=== PATIENT | female | born 1960 | race American Indian/Alaskan Native ===

== ENCOUNTER 2017-09-22 23:09 | Emergency (ER) | payer SELFPAY ==
[2017-09-22] MEDS ORDERED: VASELINE LIP THERAPY TP PRN (23:24)
[2017-09-22] MEDS ORDERED: ARTIFICIAL TEARS OPHTH OINT OU PRN (23:24)
--- NOTE | 2017-09-22 23:32 | Emergency Department Report ---
ED Seizure HPI - General Chief Complaint: Seizure Stated Complaint: CONVULSIONS Time Seen by Provider: 09/22/17 23:23 Source: EMS, old records reviewed Mode of arrival: Stretcher Limitations: Altered Mental Status - History of Present Illness Initial Comments: 57 year old female the past medical history of brain aneurysm and seizures presents to the Hospital seizure and altered mental status. Patient presents altered and unable to provide any history of present illness therefore history initially obtained from EMS. Patient apparently had a seizure lasting approximately 10 minutes followed by alteration in mental status. Patient was hypoxic at 80% on room air which improved with nonrebreather. Patient did not have any further seizures in route to the hospital but received Ativan 2 mg. Accu-Chek was reportedly in normal range. As per EMS family members at the scene state that patient had a bleeding aneurysm in June presenting with seizures. After initial treatment she has not had any other seizures until today and has had residual mild unilateral weakness since Jun. Patient is apparently to schedule surgical repair of her aneurysm. Patient presents altered, hypertensive, and tachycardic and therefore intubated for airway stabilization. Awaiting family arrival for further history of present illness. No previous medical record available for review Family at bedside at 1:20 AM and able to provide additional history Apparently patient is alcoholic and drinks alcohol daily. When she presented in June with her seizure she was going through alcohol withdrawal at the time. 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 Patient was initially is in [facility] to subsequently transferred to [place] where she was admitted times one week. She was discharged with seizure medication and scheduled to follow up with [facility] neurosurgery to have an operation of her large circular aneurysm as an outpatient. Patient has appointment on October 04 with the neurosurgeon to have the surgery performed. Patient drinks every day and has alcohol withdrawal tremors. She drank more than usual yesterday so her family member prevented her from drinking any alcohol today. - Related Data Home Medications Medication Instructions Recorded Confirmed Last Taken No Known Home Medications [No 09/23/17 09/23/17 Unknown Reported Home Medications] Allergies Allergy/AdvReac Type Severity Reaction Status Date / Time No Known Allergies Allergy Unverified 09/22/17 23:21 ED Review of Systems ROS: Stated complaint: CONVULSIONS Other details as noted in HPI Comment: Unobtainable due to pts medical conditions ED Past Medical Hx - Social History Smoking Status: Unknown if ever smoked Substance Use Type: None - Medications Home Medications: Home Medications Medication Instructions Recorded Confirmed Last Taken Type No Known Home Medications [No 09/23/17 09/23/17 Unknown History Reported Home Medications] ED Physical Exam - General Limitations: Altered Mental Status - Other Other exam information: General: Altered on response Head exam: Atraumatic, normocephalic Eyes exam: Normal appearance, pupils equal reactive to light ENT: Mild lip abrasion with mild blood in oropharynx Neck exam: Normal inspection Respiratory exam: Clear to auscultation bilateral. Prolonged expiratory phase Cardiovascular: Tachycardic Abdomen: Soft, nondistended, and nontender, with normal bowel sounds, no rebound, or guarding Extremity: Full range of motion normal inspection no deformity Back: Normal Inspection, full range of motion, no tenderness Neurologic: GCS [id number] = 6 Psychiatric: normal affect, normal mood Skin: Warm, dry, intact ED Course Vital Signs 09/22/17 09/22/17 09/22/17 23:12 23:15 23:24 Temperature Pulse Rate 122 H 133 H 120 H Respiratory 16 10 L Rate Blood Pressure 171/104 175/107 126/91 Blood Pressure [Right] O2 Sat by Pulse 100 96 100 Oximetry 09/22/17 09/22/17 09/22/17 23:30 23:45 23:59 Temperature 99.5 F Pulse Rate 133 H 112 H 115 H Respiratory 18 18 18 Rate Blood Pressure 123/84 113/89 Blood Pressure 113/89 [Right] O2 Sat by Pulse 95 100 100 Oximetry 09/23/17 09/23/17 09/23/17 00:11 00:15 00:24 Temperature Pulse Rate 102 H 100 H Respiratory 19 18 18 Rate Blood Pressure 129/91 124/91 Blood Pressure [Right] O2 Sat by Pulse 100 100 100 Oximetry 09/23/17 09/23/17 09/23/17 00:30 00:45 01:00 Temperature Pulse Rate 110 H 125 H 127 H Respiratory 18 18 20 Rate Blood Pressure 149/101 182/115 168/99 Blood Pressure [Right] O2 Sat by Pulse 99 98 Oximetry 09/23/17 09/23/17 09/23/17 01:15 01:30 01:46 Temperature Pulse Rate 107 H 120 H 117 H Respiratory 18 21 29 H Rate Blood Pressure 157/90 171/121 141/88 Blood Pressure [Right] O2 Sat by Pulse 99 100 98 Oximetry - Reevaluation(s) Reevaluation #1: 09/23/17 03:09 Patient now maxed out on Ativan and still having movement spasms. Propofol initiated. Cardene was never given since blood pressure improved after Ativan drip. - Consultations Consultation #1: 09/23/17 01:23 Call placed to [facility] to discuss with Neurosurgeon. Awaiting call back 09/23/17 02:[address] Duke at this time for transfer to [facility] - Intubation Time Out Performed: Yes Sedative: Etomidate Mg Given: 20 Paralytic: Rocuronium Mg Given: 100 Laryngoscope: Ana Cristina Size: 3 ET Tube Size: 7.5 Other Airway Intervention: pretreatment with Lidocaine 100mg Tube Secured Depth (cm): 24 Tube Secured Location: lips Tube Placement Confirmation: visualized tube passing t, equal breath sounds bilat, no breath sounds over epi, confirmation by capnometr Patient Tolerated Procedure: well Intubation Complications: none ED Medical Decision Making - Lab Data Result diagrams: 09/22/17 00:14 09/22/17 00:14 Lab Results 09/22/17 09/22/17 09/22/17 Range/Units 00:14 00:14 00:14 WBC 11.6 H (4.5-11.0) K/mm3 RBC 3.91 (3.65-5.03) M/mm3 Hgb 13.0 (10.1-14.3) gm/dl Hct 39.0 (30.3-42.9) % MCV 100 H (79-97) fl MCH 33 H (28-32) pg MCHC 33 (30-34) % RDW 13.3 (13.2-15.2) % Plt Count 363 (140-440) K/mm3 Lymph % (Auto) 21.2 (13.4-35.0) % Dougherty % (Auto) 5.2 (0.0-7.3) % Eos % (Auto) 1.6 (0.0-4.3) % Baso % (Auto) 0.3 (0.0-1.8) % Lymph # 2.5 (1.2-5.4) K/mm3 Dougherty # 0.6 (0.0-0.8) K/mm3 Eos # 0.2 (0.0-0.4) K/mm3 Baso # 0.0 (0.0-0.1) K/mm3 Seg Neutrophils % 71.7 H (40.0-70.0) % Seg Neutrophils # 8.3 H (1.8-7.7) K/mm3 PT (12.2-14.9) Sec. INR (0.87-1.13) APTT (24.2-36.6) Sec. POC ABG pH (7.35-7.45) POC ABG pCO2 (35-45) POC ABG pO2 (80-105) POC ABG HCO3 POC ABG Total CO2 POC ABG O2 Sat POC ABG Base Excess FiO2 % Sodium 131 L (137-145) mmol/L Potassium 3.2 L (3.6-5.0) mmol/L Chloride 91.9 L (98-107) mmol/L Carbon Dioxide 21 L (22-30) mmol/L Anion Gap 21 mmol/L BUN 4 L (7-17) mg/dL Creatinine 0.8 (0.7-1.2) mg/dL Estimated GFR > 60 ml/min BUN/Creatinine Ratio 5 % Glucose 148 H (65-100) mg/dL Lactic Acid (0.7-2.0) mmol/L Calcium 9.3 (8.4-10.2) mg/dL Magnesium (1.7-2.3) mg/dL Total Bilirubin 0.30 (0.1-1.2) mg/dL AST 38 (5-40) units/L ALT 17 (7-56) units/L Alkaline Phosphatase 103 (35-129) units/L Total Creatine Kinase (30-135) units/L CK-MB (CK-2) (0.0-4.0) ng/mL CK-MB (CK-2) Rel Index (0-4) Troponin T (0.00-0.029) ng/mL Total Protein 8.6 H (6.3-8.2) g/dL Albumin 3.6 L (3.9-5) g/dL Albumin/Globulin Ratio 0.7 % TSH 9.350 H (0.270-4.200) mlU/mL Urine Color (Yellow) Urine Turbidity (Clear) Urine pH (5.0-7.0) Ur Specific [place] (1.003-1.030) Urine Protein (Negative) mg/dL Urine Glucose (UA) (Negative) mg/dL Urine Ketones (Negative) mg/dL Urine Blood (Negative) Urine Nitrite (Negative) Urine Bilirubin (Negative) Urine Urobilinogen (<2.0) mg/dL Ur Leukocyte Esterase (Negative) Urine WBC (Auto) (0.0-6.0) /HPF Urine RBC (Auto) (0.0-6.0) /HPF U Epithel Cells (Auto) (0-13.0) /HPF Amorphous Crystals Urine Mucus /HPF Salicylates (2.8-20.0) mg/dL Urine Opiates Screen Urine Methadone Screen Acetaminophen (10.0-30.0) ug/mL Ur Barbiturates Screen Ur Phencyclidine Scrn Ur Amphetamines Screen U Benzodiazepines Scrn Urine Cocaine Screen U Marijuana (THC) Screen Drugs of Abuse Note Plasma/Serum Alcohol (0-0.07) % 09/22/17 09/22/17 09/22/17 Range/Units 00:14 00:14 00:14 WBC (4.5-11.0) K/mm3 RBC (3.65-5.03) M/mm3 Hgb (10.1-14.3) gm/dl Hct (30.3-42.9) % MCV (79-97) fl MCH (28-32) pg MCHC (30-34) % RDW (13.2-15.2) % Plt Count (140-440) K/mm3 Lymph % (Auto) (13.4-35.0) % Dougherty % (Auto) (0.0-7.3) % Eos % (Auto) (0.0-4.3) % Baso % (Auto) (0.0-1.8) % Lymph # (1.2-5.4) K/mm3 Dougherty # (0.0-0.8) K/mm3 Eos # (0.0-0.4) K/mm3 Baso # (0.0-0.1) K/mm3 Seg Neutrophils % (40.0-70.0) % Seg Neutrophils # (1.8-7.7) K/mm3 PT 14.8 (12.2-14.9) Sec. INR 1.10 (0.87-1.13) APTT 27.1 (24.2-36.6) Sec. POC ABG pH (7.35-7.45) POC ABG pCO2 (35-45) POC ABG pO2 (80-105) POC ABG HCO3 POC ABG Total CO2 POC ABG O2 Sat POC ABG Base Excess FiO2 % Sodium (137-145) mmol/L Potassium (3.6-5.0) mmol/L Chloride (98-107) mmol/L Carbon Dioxide (22-30) mmol/L Anion Gap mmol/L BUN (7-17) mg/dL Creatinine (0.7-1.2) mg/dL Estimated GFR ml/min BUN/Creatinine Ratio % Glucose (65-100) mg/dL Lactic Acid (0.7-2.0) mmol/L Calcium (8.4-10.2) mg/dL Magnesium 1.80 (1.7-2.3) mg/dL Total Bilirubin (0.1-1.2) mg/dL AST (5-40) units/L ALT (7-56) units/L Alkaline Phosphatase (35-129) units/L Total Creatine Kinase (30-135) units/L CK-MB (CK-2) (0.0-4.0) ng/mL CK-MB (CK-2) Rel Index (0-4) Troponin T (0.00-0.029) ng/mL Total Protein (6.3-8.2) g/dL Albumin (3.9-5) g/dL Albumin/Globulin Ratio % TSH (0.270-4.200) mlU/mL Urine Color (Yellow) Urine Turbidity (Clear) Urine pH (5.0-7.0) Ur Specific [place] (1.003-1.030) Urine Protein (Negative) mg/dL Urine Glucose (UA) (Negative) mg/dL Urine Ketones (Negative) mg/dL Urine Blood (Negative) Urine Nitrite (Negative) Urine Bilirubin (Negative) Urine Urobilinogen (<2.0) mg/dL Ur Leukocyte Esterase (Negative) Urine WBC (Auto) (0.0-6.0) /HPF Urine RBC (Auto) (0.0-6.0) /HPF U Epithel Cells (Auto) (0-13.0) /HPF Amorphous Crystals Urine Mucus /HPF Salicylates (2.8-20.0) mg/dL Urine Opiates Screen Urine Methadone Screen Acetaminophen (10.0-30.0) ug/mL Ur Barbiturates Screen Ur Phencyclidine Scrn Ur Amphetamines Screen U Benzodiazepines Scrn Urine Cocaine Screen U Marijuana (THC) Screen Drugs of Abuse Note Plasma/Serum Alcohol < 0.01 (0-0.07) % 09/22/17 09/22/17 09/22/17 Range/Units 00:14 00:14 00:14 WBC (4.5-11.0) K/mm3 RBC (3.65-5.03) M/mm3 Hgb (10.1-14.3) gm/dl Hct (30.3-42.9) % MCV (79-97) fl MCH (28-32) pg MCHC (30-34) % RDW (13.2-15.2) % Plt Count (140-440) K/mm3 Lymph % (Auto) (13.4-35.0) % Dougherty % (Auto) (0.0-7.3) % Eos % (Auto) (0.0-4.3) % Baso % (Auto) (0.0-1.8) % Lymph # (1.2-5.4) K/mm3 Dougherty # (0.0-0.8) K/mm3 Eos # (0.0-0.4) K/mm3 Baso # (0.0-0.1) K/mm3 Seg Neutrophils % (40.0-70.0) % Seg Neutrophils # (1.8-7.7) K/mm3 PT (12.2-14.9) Sec. INR (0.87-1.13) APTT (24.2-36.6) Sec. POC ABG pH (7.35-7.45) POC ABG pCO2 (35-45) POC ABG pO2 (80-105) POC ABG HCO3 POC ABG Total CO2 POC ABG O2 Sat POC ABG Base Excess FiO2 % Sodium (137-145) mmol/L Potassium (3.6-5.0) mmol/L Chloride (98-107) mmol/L Carbon Dioxide (22-30) mmol/L Anion Gap mmol/L BUN (7-17) mg/dL Creatinine (0.7-1.2) mg/dL Estimated GFR ml/min BUN/Creatinine Ratio % Glucose (65-100) mg/dL Lactic Acid (0.7-2.0) mmol/L Calcium (8.4-10.2) mg/dL Magnesium (1.7-2.3) mg/dL Total Bilirubin (0.1-1.2) mg/dL AST (5-40) units/L ALT (7-56) units/L Alkaline Phosphatase (35-129) units/L Total Creatine Kinase 136 H (30-135) units/L CK-MB (CK-2) 2.0 (0.0-4.0) ng/mL CK-MB (CK-2) Rel Index 1.4 (0-4) Troponin T < 0.010 (0.00-0.029) ng/mL Total Protein (6.3-8.2) g/dL Albumin (3.9-5) g/dL Albumin/Globulin Ratio % TSH (0.270-4.200) mlU/mL Urine Color (Yellow) Urine Turbidity (Clear) Urine pH (5.0-7.0) Ur Specific [place] (1.003-1.030) Urine Protein (Negative) mg/dL Urine Glucose (UA) (Negative) mg/dL Urine Ketones (Negative) mg/dL Urine Blood (Negative) Urine Nitrite (Negative) Urine Bilirubin (Negative) Urine Urobilinogen (<2.0) mg/dL Ur Leukocyte Esterase (Negative) Urine WBC (Auto) (0.0-6.0) /HPF Urine RBC (Auto) (0.0-6.0) /HPF U Epithel Cells (Auto) (0-13.0) /HPF Amorphous Crystals Urine Mucus /HPF Salicylates < 0.3 L (2.8-20.0) mg/dL Urine Opiates Screen Urine Methadone Screen Acetaminophen < 15.0 (10.0-30.0) ug/mL Ur Barbiturates Screen Ur Phencyclidine Scrn Ur Amphetamines Screen U Benzodiazepines Scrn Urine Cocaine Screen U Marijuana (THC) Screen Drugs of Abuse Note Plasma/Serum Alcohol (0-0.07) % 09/22/17 09/22/17 09/22/17 Range/Units 00:14 23:54 23:54 WBC (4.5-11.0) K/mm3 RBC (3.65-5.03) M/mm3 Hgb (10.1-14.3) gm/dl Hct (30.3-42.9) % MCV (79-97) fl MCH (28-32) pg MCHC (30-34) % RDW (13.2-15.2) % Plt Count (140-440) K/mm3 Lymph % (Auto) (13.4-35.0) % Dougherty % (Auto) (0.0-7.3) % Eos % (Auto) (0.0-4.3) % Baso % (Auto) (0.0-1.8) % Lymph # (1.2-5.4) K/mm3 Dougherty # (0.0-0.8) K/mm3 Eos # (0.0-0.4) K/mm3 Baso # (0.0-0.1) K/mm3 Seg Neutrophils % (40.0-70.0) % Seg Neutrophils # (1.8-7.7) K/mm3 PT (12.2-14.9) Sec. INR (0.87-1.13) APTT (24.2-36.6) Sec. POC ABG pH (7.35-7.45) POC ABG pCO2 (35-45) POC ABG pO2 (80-105) POC ABG HCO3 POC ABG Total CO2 POC ABG O2 Sat POC ABG Base Excess FiO2 % Sodium (137-145) mmol/L Potassium (3.6-5.0) mmol/L Chloride (98-107) mmol/L Carbon Dioxide (22-30) mmol/L Anion Gap mmol/L BUN (7-17) mg/dL Creatinine (0.7-1.2) mg/dL Estimated GFR ml/min BUN/Creatinine Ratio % Glucose (65-100) mg/dL Lactic Acid 3.90 H* (0.7-2.0) mmol/L Calcium (8.4-10.2) mg/dL Magnesium (1.7-2.3) mg/dL Total Bilirubin (0.1-1.2) mg/dL AST (5-40) units/L ALT (7-56) units/L Alkaline Phosphatase (35-129) units/L Total Creatine Kinase (30-135) units/L CK-MB (CK-2) (0.0-4.0) ng/mL CK-MB (CK-2) Rel Index (0-4) Troponin T (0.00-0.029) ng/mL Total Protein (6.3-8.2) g/dL Albumin (3.9-5) g/dL Albumin/Globulin Ratio % TSH (0.270-4.200) mlU/mL Urine Color Yellow (Yellow) Urine Turbidity Clear (Clear) Urine pH 5.0 (5.0-7.0) Ur Specific [place] 1.006 (1.003-1.030) Urine Protein <15 mg/dl (Negative) mg/dL Urine Glucose (UA) Neg (Negative) mg/dL Urine Ketones Neg (Negative) mg/dL Urine Blood Sm (Negative) Urine Nitrite Neg (Negative) Urine Bilirubin Neg (Negative) Urine Urobilinogen < 2.0 (<2.0) mg/dL Ur Leukocyte Esterase Neg (Negative) Urine WBC (Auto) < 1.0 (0.0-6.0) /HPF Urine RBC (Auto) < 1.0 (0.0-6.0) /HPF U Epithel Cells (Auto) 1.0 (0-13.0) /HPF Amorphous Crystals 3+ Urine Mucus Few /HPF Salicylates (2.8-20.0) mg/dL Urine Opiates Screen Presumptive negative Urine Methadone Screen Presumptive negative Acetaminophen (10.0-30.0) ug/mL Ur Barbiturates Screen Presumptive negative Ur Phencyclidine Scrn Presumptive negative Ur Amphetamines Screen Presumptive negative U Benzodiazepines Scrn Presumptive negative Urine Cocaine Screen Presumptive negative U Marijuana (THC) Screen Presumptive negative Drugs of Abuse Note Disclamer Plasma/Serum Alcohol (0-0.07) % 09/22/17 Range/Units 23:59 WBC (4.5-11.0) K/mm3 RBC (3.65-5.03) M/mm3 Hgb (10.1-14.3) gm/dl Hct (30.3-42.9) % MCV (79-97) fl MCH (28-32) pg MCHC (30-34) % RDW (13.2-15.2) % Plt Count (140-440) K/mm3 Lymph % (Auto) (13.4-35.0) % Dougherty % (Auto) (0.0-7.3) % Eos % (Auto) (0.0-4.3) % Baso % (Auto) (0.0-1.8) % Lymph # (1.2-5.4) K/mm3 Dougherty # (0.0-0.8) K/mm3 Eos # (0.0-0.4) K/mm3 Baso # (0.0-0.1) K/mm3 Seg Neutrophils % (40.0-70.0) % Seg Neutrophils # (1.8-7.7) K/mm3 PT (12.2-14.9) Sec. INR (0.87-1.13) APTT (24.2-36.6) Sec. POC ABG pH 7.372 (7.35-7.45) POC ABG pCO2 45.4 H (35-45) POC ABG pO2 555 H (80-105) POC ABG HCO3 26.3 POC ABG Total CO2 28 POC ABG O2 Sat 100 POC ABG Base Excess 1 FiO2 100 % Sodium (137-145) mmol/L Potassium (3.6-5.0) mmol/L Chloride (98-107) mmol/L Carbon Dioxide (22-30) mmol/L Anion Gap mmol/L BUN (7-17) mg/dL Creatinine (0.7-1.2) mg/dL Estimated GFR ml/min BUN/Creatinine Ratio % Glucose (65-100) mg/dL Lactic Acid (0.7-2.0) mmol/L Calcium (8.4-10.2) mg/dL Magnesium (1.7-2.3) mg/dL Total Bilirubin (0.1-1.2) mg/dL AST (5-40) units/L ALT (7-56) units/L Alkaline Phosphatase (35-129) units/L Total Creatine Kinase (30-135) units/L CK-MB (CK-2) (0.0-4.0) ng/mL CK-MB (CK-2) Rel Index (0-4) Troponin T (0.00-0.029) ng/mL Total Protein (6.3-8.2) g/dL Albumin (3.9-5) g/dL Albumin/Globulin Ratio % TSH (0.270-4.200) mlU/mL Urine Color (Yellow) Urine Turbidity (Clear) Urine pH (5.0-7.0) Ur Specific [place] (1.003-1.030) Urine Protein (Negative) mg/dL Urine Glucose (UA) (Negative) mg/dL Urine Ketones (Negative) mg/dL Urine Blood (Negative) Urine Nitrite (Negative) Urine Bilirubin (Negative) Urine Urobilinogen (<2.0) mg/dL Ur Leukocyte Esterase (Negative) Urine WBC (Auto) (0.0-6.0) /HPF Urine RBC (Auto) (0.0-6.0) /HPF U Epithel Cells (Auto) (0-13.0) /HPF Amorphous Crystals Urine Mucus /HPF Salicylates (2.8-20.0) mg/dL Urine Opiates Screen Urine Methadone Screen Acetaminophen (10.0-30.0) ug/mL Ur Barbiturates Screen Ur Phencyclidine Scrn Ur Amphetamines Screen U Benzodiazepines Scrn Urine Cocaine Screen U Marijuana (THC) Screen Drugs of Abuse Note Plasma/Serum Alcohol (0-0.07) % - EKG Data -: EKG Interpreted by Ca EKG shows normal: sinus rhythm, axis (60), QRS complexes (76), ST-T waves (no stemi/t inv) Rate: tachycardia (124) - Radiology Data Radiology results: report reviewed read by radiologist cxr: Endotracheal tube in mid trachea. No acute lung findings CT head noncontrast: 16 x 13 mm partial calcified extra-axial mass in the left temporal region most likely representing a meningioma. Less likely possibly of mycotic or posttraumatic aneurysm of the left middle cerebral artery not excluded - Medical Decision Making Alcohol withdrawal Likely the cause of seizure: ativan, ativan drip, keppra given Likely the cause of hypertension and tachycardia Vitals improvement (bp and heart rate decreasing) with Ativan drip (no hx of HTN reported by family) Cardene initially ordered but held due to improving vitals Patient intubated upon arrival due to poor GCS (Neuro intubation with lidocaine , etomidate, and Rocuronium) CT shows no active hemorrhage but possible mass versus aneurysm which is likely chronic based on family history. Patient will be transferred to [facility] by neurosurgeon Dr Duke for transfer to [facility] ED. ABG does not reveal any acid-base disturbance lactic acid elevation like he secondary to seizure. Repeat pending. no signs of sepsis at this time Patient has mild hyponatremia treatment area 1 L normal saline initiated Mild hypokalemia IV potassium initiated TSH elevated: free t4 pending - Differential Diagnosis seizure, ICH, aneurysm, alcohol withdrawal, encephalopathy, hypertensive em Critical Care Time: No Critical care attestation.: If time is entered above; I have spent that time in minutes in the direct care of this critically ill patient, excluding procedure time. ED Disposition Clinical Impression: Alcohol withdrawal, Alcohol withdrawal seizure, Brain aneurysm, Endotracheally intubated, Hyponatremia, Hypokalemia, Elevated lactic acid level Disposition: DC/TX-70 ANOTHER TYPE [facility] Is pt being admited?: No Condition: Stable Time of Disposition: 02:21 (awaiting transport to [facility] ER)
[2017-09-22] MEDS ORDERED: ATIVAN 100 MG in NACL 0.9% 50 ML, VIAFLEX EMPTY CONTAINER 0 ML IV SCH (23:45)
[2017-09-22] MEDS ORDERED: NACL 0.9% 500 ML IV SCH (23:45)
[2017-09-23 00:14] LABS: Amorphous Crystals,Urine 3+; Bilirubin,Urine NEG (Negative); Blood,Urine SM (Negative); Color,Urine Yellow (Yellow); Mucus,Urine FEW /HPF; Protein,Urine <15 mg/dL mg/dL (Negative); RBC,Urine < 1.0 /HPF (0.0-6.0); Urobilinogen,Urine < 2.0 mg/dL (<2.0); WBC,Urine < 1.0 /HPF (0.0-6.0)
[2017-09-23 00:15] LABS: Basophils % (Auto) 0.3 % (0.0-1.8); Eosinophils # (Auto) 0.2 K/mm3 (0.0-0.4); Eosinophils % (Auto) 1.6 % (0.0-4.3); Lymphocytes # (Auto) 2.5 K/mm3 (1.2-5.4); Lymphocytes % (Auto) 21.2 % (13.4-35.0); Mean Corpuscular HGB Conc 33 % (30-34); Mean Corpuscular Hemoglobin 33 pg (28-32); Mean Corpuscular Volume 100 fl (79-97); Monocytes # (Auto) 0.6 K/mm3 (0.0-0.8); Monocytes % (Auto) 5.2 % (0.0-7.3); Platelet Count 363 K/mm3 (140-440); Red Blood Count 3.91 M/mm3 (3.65-5.03); Red Cell Distribution Width 13.3 % (13.2-15.2)
[2017-09-23 00:20] LABS: Amphetamine Screen,Urine PRESUMPTIVE NEGATIVE; Benzodiazepines Screen,Urine PRESUMPTIVE NEGATIVE; Cannabinoid Screen,Urine PRESUMPTIVE NEGATIVE; Cocaine Screen,Urine PRESUMPTIVE NEGATIVE; Methadone Screen,Urine PRESUMPTIVE NEGATIVE; Opiate Screen,Urine PRESUMPTIVE NEGATIVE
[2017-09-23 00:28] LABS: INR 1.1 (0.87-1.13)
[2017-09-23 00:29] LABS: Partial Thromboplastin Time 27.1 Sec. (24.2-36.6)
[2017-09-23 00:34] LABS: Alanine Aminotransferase 17 units/L (7-56); Albumin 3.6 g/dL (3.9-5); BUN/Creatinine Ratio 5; Blood Urea Nitrogen 4 mg/dL (7-17); Calcium 9.3 mg/dL (8.4-10.2); Hemolysis Index 35
[2017-09-23] MEDS ORDERED: NACL 0.9% 1000 ML 1,000 ML IV ONE ×2 (00:43→01:51)
--- NOTE | 2017-09-23 00:51 | Cat Scan Report ---
FINAL REPORT PROCEDURE: CT HEAD/BRAIN WO CON TECHNIQUE: Computerized tomography of the head was performed without contrast material. HISTORY: AMS COMPARISON: No prior studies are available for comparison. FINDINGS: Skull and scalp: Normal. Paranasal sinuses: Normal. Ventricles and subarachnoid spaces: There is central and cortical atrophy appropriate for the patient's age. There is no hydrocephalus or asymmetry. Cerebrum: There is a 16 x 13 millimeter partially calcified dense extra-axial mass in the left temporal region most likely representing meningioma. Less likely possibility of mycotic or posttraumatic aneurysm of the left middle cerebral artery not excluded. This can be further evaluated with contrast-enhanced MRI. There is no hemorrhage, edema, midline shift or herniation. There is focal encephalomalacia and gliosis in the left frontal and temporal lobes possibly from old infarct or other injury. Cerebellum and brainstem: No evidence of hemorrhage, acute infarction or mass. Vasculature: There is calcified plaque in the cavernous portions of the internal carotid arteries.. Comments: None. IMPRESSION: There is a 16 x 13 millimeter partially calcified dense extra-axial mass in the left temporal region most likely representing meningioma. Less likely possibility of mycotic or posttraumatic aneurysm of the left middle cerebral artery not excluded. This can be further evaluated with contrast-enhanced MRI. There is no hemorrhage, edema, midline shift or herniation. There is focal encephalomalacia and gliosis in the left frontal and temporal lobes possibly from old infarct or other injury.
--- NOTE | 2017-09-23 00:53 | XRay Report ---
FINAL REPORT PROCEDURE: XR CHEST 1V AP TECHNIQUE: Chest radiograph anteroposterior view. CPT 30967 HISTORY: ETT placement COMPARISON: No prior studies are available for comparison. FINDINGS: Heart: Normal. Mediastinum/Vessels: Normal. Lungs/Pleural space: Normal. Bony thorax: There is an old fracture of the left clavicle.. Life support devices: There is an endotracheal tube in the mid trachea.. IMPRESSION: No acute cardiopulmonary abnormality. There is an endotracheal tube in the mid trachea..
[2017-09-23] MEDS ORDERED: CARDENE 50 MG in NACL 0.9% 250ML 230 ML IV SCH (01:00)
[2017-09-23] MEDS ORDERED: KEPPRA 1,000 MG/NS 0.75% 100ML 1,000 MG/100 ML BAG IV ONE (01:12)
[2017-09-23] MEDS ORDERED: KCL 10MEQ/100ML 10 MEQ/100 ML BAG IV SCH (02:00)
[2017-09-23] MEDS ORDERED: KCL 40 MEQ in NACL 0.9% 500 ML 500 ML IV ONE (02:15)
[2017-09-23 03:10] VITALS: BP 126/86
[2017-09-23] MEDS ORDERED: DIPRIVAN 10 MG/ML 1,000 MG/100 ML BOTTLE IV SCH (04:00)
--- NOTE | 2017-09-23 05:37 | XRay Report ---
FINAL REPORT PROCEDURE: XR ABDOMEN 1V AP TECHNIQUE: AP supine portable radiograph of the abdomen was obtained at 09/23/2017 03:39 (EST) . HISTORY: OG placement COMPARISON: No prior studies are available for comparison. FINDINGS: Bowel gas pattern: Nonobstructive. Masses or calcifications: None. Bony structures: Normal. Other: The NG tube is in the stomach per. IMPRESSION: No acute abnormality. The NG tube is in the stomach per
--- NOTE | 2017-09-23 06:21 | XRay Report ---
FINAL REPORT PROCEDURE: XR CHEST 1V AP TECHNIQUE: Chest radiograph anteroposterior view. CPT 76874 HISTORY: follow up respiratory failure COMPARISON: No prior studies are available for comparison. FINDINGS: Heart: Normal. Mediastinum/Vessels: Normal. Lungs/Pleural space: Normal. Bony thorax: No acute osseous abnormality. Life support devices: The endotracheal tube is in the distal trachea approximately 1 centimeter above the feliciano. The NG tube is in the stomach.. IMPRESSION: Heart size is normal. Lungs are clear and expanded.. The endotracheal tube is in the distal trachea approximately 1 centimeter above the feliciano. The NG tube is in the stomach..
[2017-09-23] MEDS ORDERED: ZEMURON IV ONE (10:14)
[2017-09-23] MEDS ORDERED: AMIDATE IV ONE (10:14)
[2017-09-23] MEDS ORDERED: XYLOCAINE CARDIAC IV ONE (10:14)
== END 2017-09-23 04:22 | disposition other institution (70) ==
LOC: ED 23:09
DX: F10.239 Alcohol dependence with withdrawal, unspecified (principal); I67.1 Cerebral aneurysm, nonruptured; E87.1 Hypo-osmolality and hyponatremia; E87.6 Hypokalemia
CPT/HCPCS: 31500; 36415; 70450; 71045; 74018; 80053; 80307; 81001; 82140; 82550; 82553; 82803; 82962; 83735; 84439; 84443; 84484; 85025; 85610; 85730; 87070; 87205; 93005; 93010; 96361; 96365; 96368; 99285; G0480; J1953; J2001; J2060; J2704; J3480; J7030; J7040; J7050; 80320; 94002

== ENCOUNTER 2018-08-02 08:57 | Inpatient (IN) | payer MEDICAID ==
[2018-08-02] MEDS ORDERED: ANCEF/STERILE WATER 2 GM/20 ML IV NR (09:36)
[2018-08-02] MEDS ORDERED: DECADRON ONE (10:05)
[2018-08-02] MEDS ORDERED: ZOFRAN ONE (10:05)
[2018-08-02] MEDS ORDERED: XYLOCAINE MPF 2% ONE (10:05)
[2018-08-02] MEDS ORDERED: DILAUDID ONE ×2 (10:05→12:27)
[2018-08-02] MEDS ORDERED: DIPRIVAN 10 MG/ML IV ONE (10:05)
[2018-08-02] MEDS ORDERED: MARCAINE-EPI 0.25%-1:200,000 INFILTRATI ONE (10:50)
[2018-08-02] MEDS ORDERED: NEOSPORIN GU IR ONE (10:50)
--- NOTE | 2018-08-02 11:16 | Anesthesia Consultation ---
Anesthesia Consult and Med Hx Date of service: 08/02/18 - Airway Anesthetic Teeth Evaluation: Poor ROM Head & Neck: Adequate Mental/Hyoid Distance: Adequate Mallampati Class: Class II Intubation Access Assessment: Good - Pulmonary Exam CTA: Yes - Cardiac Exam Cardiac Exam: RRR - Pre-Operative Health Status ASA Pre-Surgery Classification: ASA3 Proposed Anesthetic Plan: General - Pulmonary Hx Asthma: No COPD: No Hx Pneumonia: No - Central Nervous System Hx Seizures: Yes (Last 06/2017) CVA: Yes (06/2017) Hx Psychiatric Problems: No - Endocrine Hx End Stage Renal Disease: No - Other Systems Hx Alcohol Use: Yes (1-2 beers per day) Hx Substance Use: Yes (Clean x 1year) Hx Cancer: No
[2018-08-02] MEDS: LACTATED RINGERS 1,000 ML IV SCH ×2 (11:20→19:41)
[2018-08-02] MEDS ORDERED: PEPCID PO NR (12:00)
[2018-08-02] MEDS ORDERED: TORADOL ONE (12:23)
[2018-08-02] MEDS ORDERED: MARCAINE 0.5% INFILTRATI ONE ×2 (12:23→12:30)
[2018-08-02] MEDS ORDERED: MORPHINE ONE (12:24)
[2018-08-02] MEDS ORDERED: NACL 0.9% 150 ML ONE (12:24)
[2018-08-02] MEDS ORDERED: TORADOL IV ONE (12:30)
[2018-08-02] MEDS ORDERED: MORPHINE IM ONE (12:30)
[2018-08-02] MEDS ORDERED: NACL 0.9% IV ONE (12:30)
[2018-08-02] MEDS ORDERED: ATIVAN ONE (15:25)
[2018-08-02] MEDS ORDERED: ATIVAN IV ONE (15:51)
[2018-08-02] MEDS ORDERED: SODIUM CHLORIDE FLUSH SYRINGE 10 ML IV SCH (16:00)
--- NOTE | 2018-08-02 16:18 | Procedure Note ---
Date of procedure: 08/02/18 Pre-op diagnosis: displaced four-part right proximal humerus fracture Post-op diagnosis: same Procedure: Reduction internal fixation right proximal humerus Procedure The patient was brought to the OR and placed on the OR table in supine position following induction and intubation by anesthesia the patient right upper extremity was prepped and draped in the usual sterile manner she was placed in the beachchair position a timeout procedure was done to identify the patient and the correct operative site. Using C-arm fluoroscopy and attempt at closed reduction was performed however the fracture fragments did not appear to change position at all therefore an open reduction internal fixation was performed using lateral incision beginning at the lateral border of the acromion and proceeding distally the incision was taken down sharply through skin and 6 subcutaneous the deltoid fascia was seen and it was split digitally the rotator cuff tendon was incised revealing the fracture site this was then taken down slightly more distal along the lateral border of the humerus. We encountered the axillary vessels and nerve using a vessel loop the axillary nerve was protected out of the operative field the fracture fragments had to be manually reduced by removing the early callus and scar tissue formation around the fracture site. The locking plates was attached to the distal fragment followed by manual reduction of the proximal fracture fragments and temporary fixation with K wires AP and lateral views were obtained on the C-arm and showed good reduction of the fracture site. Next the proximal fragments was secured using 4 locking screws and 3 screws in the distal fragment on AP and lateral view was obtained showing good reduction of the fracture and reapproximation of the articular surface of the fracture fragments proximally 3 to the tuberosities were repaired closure of the deltoid and the patient tolerated procedure and there were no complications she was then taken to postanesthesia recovery in a stable condition Anesthesia: JOSSELIN Surgeon: MARIA DE JESUS ERBOLLEDO Absorption Plant Operator: MICHAEL BOO Estimated blood loss: 50-100ml Pathology: none Condition: stable Disposition: PACU
[2018-08-02] MEDS: ANCEF/NS 1 GM/50 ML 1 GM/50 ML BAG IV SCH (21:16)
[2018-08-02] MEDS: PERCOCET 5/325 PO PRN (23:43)
[2018-08-03] MEDS: ANCEF/NS 1 GM/50 ML 1 GM/50 ML BAG IV SCH (04:54)
[2018-08-03] MEDS: PERCOCET 5/325 PO PRN ×3 (05:39→22:02)
--- NOTE | 2018-08-03 08:04 | XRay Report ---
RIGHT SHOULDER, 2 VIEWS History: Right proximal humeral fracture. Findings: Internal and external rotational fluoroscopic images were obtained during surgery. The images demonstrate a comminuted fracture of the right humeral head. The remaining bony structures are intact on fluoroscopy. Alignment at the glenohumeral joint appears anatomic. Impression: Right humeral head fracture.
--- NOTE | 2018-08-03 08:06 | XRay Report ---
RIGHT SHOULDER, 2 VIEWS History: Right proximal humeral fracture. Findings: 2 fluoroscopic images of the right shoulder were obtained during surgery. The images demonstrate internal fixation of a right humeral head fracture with metal plate and screws. Alignment appears anatomic at the fracture site. Impression: Stable appearance of the internal fixation of the right proximal humerus. Correlate with the operative report as needed.
[2018-08-03] MEDS: MORPHINE IV PRN (09:24)
[2018-08-03] MEDS: LACTATED RINGERS 1,000 ML IV SCH (09:31)
[2018-08-03] MEDS ORDERED: LOVENOX SUB-Q SCH (10:00)
[2018-08-03 10:33] LABS: Hematocrit 27.3 % (30.3-42.9); Hemoglobin 9.4 gm/dl (10.1-14.3); Mean Corpuscular HGB Conc 34 % (30-34); Mean Corpuscular Volume 90 fl (79-97); Platelet Count 487 K/mm3 (140-440); Red Blood Count 3.03 M/mm3 (3.65-5.03)
[2018-08-03] MEDS: KEPPRA PO SCH ×2 (10:43→22:02)
[2018-08-03 10:55] LABS: Alanine Aminotransferase 10 units/L (7-56); Albumin 3.2 g/dL (3.9-5); BUN/Creatinine Ratio 13; Blood Urea Nitrogen 12 mg/dL (7-17); Calcium 8.8 mg/dL (8.4-10.2); Hemolysis Index 0
--- NOTE | 2018-08-03 12:26 | Consultation ---
History of Present Illness - Reason for Consult Consult date: 08/03/18 Tachycardia Requesting physician: ADONIS FORBES - History of Present Illness Hospitalist Consultation for Tachycardia History mostly from daughter, Ele, at bedside Ms. 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 Adonis Forbes. Patient underwent Reduction internal fixation right proximal humerus. Patient had a seizure and fell causing right arm fracture. During postop period, patient has tachycardia and Hospitalist were consulted. During times of the tachycardia, pt is in pain and undergoing activities. Patient is poor historian. PMH: as hpi PSH: unknown SH: no tob +etoh 2 beers a day, former drug user prior to ICH FH: Doesn't remember ROS: unable to obtain due to cognitive impairment Medications and Allergies Allergies Allergy/AdvReac Type Severity Reaction Status Date / Time No Known Allergies Allergy Verified 07/27/18 15:34 Home Medications Medication Instructions Recorded Confirmed Last Taken Type Multivitamin [Multiple Vitamins] 1 each PO DAILY 07/18/18 07/27/18 07/18/18 History levETIRAcetam [Keppra TAB] 1,000 mg PO BID 07/18/18 07/27/18 07/18/18 History HYDROcodone/APAP 10-325 [[place] 1 each PO Q6HR PRN 07/27/18 07/27/18 Unknown History 10/325] Active Meds: Active Medications Acetaminophen/Hydrocodone Bitart ([place] 5/325) 1 each PO TID [facility] Stop: 08/04/18 10:00 Enoxaparin Sodium (Lovenox) 40 mg SUB-Q QDAY@1000 [facility] Levetiracetam (Keppra) 1,000 mg PO BID [facility] Last Admin: 08/03/18 10:43 Dose: 1,000 mg Documented by: Morphine Sulfate (Morphine) 4 mg IV Q4H PRN PRN Reason: Pain , Severe (7-10) Last Admin: 08/03/18 09:24 Dose: 4 mg Documented by: Oxycodone/Acetaminophen (Percocet 5/325) 1 tab PO Q6H PRN PRN Reason: Pain , Severe (7-10) Last Admin: 08/03/18 10:43 Dose: 1 tab Documented by: Sodium Chloride (Sodium Chloride Flush Syringe 10 Ml) 10 ml IV PRN EDWARD Last Admin: 08/03/18 09:29 Dose: 10 ml Documented by: Exam - Physical Exam Narrative exam: Gen: WDWN, NAD, Awake, Alert, Orientated x 1 HEENT: NCAT, EOMI, PERRL, OP Clear Neck: supple, no adenopathy, no thyromegaly, no JVD, right EJ CVS/Heart: RRR, normal S1S2, pulses present bilaterally Chest/Lungs: CTA B, Symmetrical chest expansion, good air entry bilaterally GI/Abdomen: soft, NTND, good bowel sounds, no guarding or rebound /Bladder: no suprapubic tenderness, no CVA or paraspinal tenderness Extermity/Skin: no c/c/e, no obvious rash, left ankle INT line MSK: lrom right arm Neuro: CN 2-12 grossly intact, no new focal deficits Psych: calm - Constitutional Vitals: Temp Pulse Resp BP Pulse Ox 100.0 F H 113 H 20 119/75 95 08/03/18 07:34 08/03/18 07:34 08/03/18 07:34 08/03/18 07:34 08/03/18 07:35 Results - Labs CBC & Chem 7: 08/03/18 09:35 08/03/18 09:35 Labs: Abnormal lab results 08/03/18 08/03/18 Range/Units 09:35 09:35 RBC 3.03 L (3.65-5.03) M/mm3 Hgb 9.4 L (10.1-14.3) gm/dl Hct 27.3 L (30.3-42.9) % Plt Count 487 H (140-440) K/mm3 Carbon Dioxide 21 L (22-30) mmol/L Glucose 113 H (65-100) mg/dL Albumin 3.2 L (3.9-5) g/dL Assessment and Plan Ms. Ivy is 58 yo woman with a history of hypertension, CVA with ICH June 2017 causing seizure disorder/cognitive impairment/memory loss and ETOH dependency who presented to [facility] as a direct admission on 08/02/2018 by Orthopedist, Dr. Adonis Forbes. Patient underwent Reduction internal fixation right proximal humerus. Patient had a seizure and fell causing right arm fracture. During postop period, patient has tachycardia and Hospitalist were consulted. During times of the tachycardia, pt is in pain and undergoing activities. Patient is poor historian. -Sinus Tachycardia, heart rate went up to 140s with activity, most likely due to uncontrolled pain, EKG reviewed: get ECHO and treat with pain medication around the clock due to mental status, re-access in AM -Right arm Fracture s/p fixation: per Ortho with dvt prophylaxis -History of ICH with chronic encephalopathy -Seizure disorder: treat with keppra, seizure precautions -Hypertension: continue antihypertensives, d/c ivf, remove INT left ankle area and right neck -Alcohol Dependency: start CIWA protocol, neurocheck, fall precautions, treat with thiamine -Anemia: continue to monitor, repeat in am Disposition: continue inpatient care, if ECHO and heart rate less than 110 then possible d/c tomorrow
[2018-08-03] MEDS ORDERED: NORCO 5/325 PO SCH (14:00)
--- NOTE | 2018-08-03 15:19 | Progress Note ---
Assessment and Plan s/p ORIF right proximal humerus fracture doing ok hopefully discharge to home soon Subjective Date of service: 08/03/18 Interval history: c/o incisional pain right shoulder, heart rate tachy 120's - 140's, appreciate medicine imput Objective Vital signs: Vital Signs - 12hr 08/03/18 08/03/18 08/03/18 04:50 07:34 07:35 Temperature 98.5 F 100.0 F H Pulse Rate 117 H 113 H Respiratory 18 20 Rate Blood Pressure 120/80 119/75 O2 Sat by Pulse 96 93 95 Oximetry 08/03/18 12:12 Temperature 99.4 F Pulse Rate 118 H Respiratory 18 Rate Blood Pressure 125/79 O2 Sat by Pulse 92 Oximetry Narrative Exam: Right shoulder - post op dressing intact, moderate swelling, distal n/v intact - Labs CBC & BMP: 08/03/18 09:35 08/03/18 09:35 Labs: Abnormal lab results 08/03/18 08/03/18 Range/Units 09:35 09:35 RBC 3.03 L (3.65-5.03) M/mm3 Hgb 9.4 L (10.1-14.3) gm/dl Hct 27.3 L (30.3-42.9) % Plt Count 487 H (140-440) K/mm3 Carbon Dioxide 21 L (22-30) mmol/L Glucose 113 H (65-100) mg/dL Albumin 3.2 L (3.9-5) g/dL
[2018-08-03] MEDS ORDERED: TYLENOL PO PRN (18:17)
[2018-08-03 19:57] LABS: Bacteria,Urine 1+ /HPF (Negative); Bilirubin,Urine NEG (Negative); Blood,Urine NEG (Negative); Color,Urine Yellow (Yellow); Protein,Urine <15 mg/dL mg/dL (Negative)
[2018-08-03 20:00] LABS: WBC,Urine > 182.0 /HPF (0.0-6.0)
[2018-08-03] MEDS: ROCEPHIN/NS 1 GM/50 ML 1 GM/50 ML BAG IV SCH (20:15)
--- NOTE | 2018-08-03 21:36 | XRay Report ---
FINAL REPORT PROCEDURE: XR CHEST 1V AP TECHNIQUE: Chest radiograph anteroposterior view. CPT 58660 HISTORY: pneumonia COMPARISON: 09/23/2017. FINDINGS: There is moderate degree elevation of right hemidiaphragm obscuring the right lower lung. Subsegmenta l atelectatic changes are noted involving the medial left lower lung. There are no confluent infiltra justin or mass lesions. Pleural spaces are clear. IMPRESSION: Right hemidiaphragm is elevated a which appears to be new since the prior study No obvious acute pulmonary process A two view chest study is recommended whenever the patient's condition permits.
[2018-08-04 05:11] LABS: Hematocrit 26.6 % (30.3-42.9); Mean Corpuscular HGB Conc 34 % (30-34); Mean Corpuscular Volume 90 fl (79-97); Platelet Count 444 K/mm3 (140-440); Red Blood Count 2.96 M/mm3 (3.65-5.03)
[2018-08-04 05:33] LABS: BUN/Creatinine Ratio 11; Blood Urea Nitrogen 9 mg/dL (7-17); Calcium 8.7 mg/dL (8.4-10.2); Hemolysis Index 8
[2018-08-04] MEDS: KEPPRA PO SCH ×2 (09:12→22:13)
[2018-08-04] MEDS: LOVENOX SUB-Q SCH (09:17)
[2018-08-04] MEDS: ROCEPHIN/NS 1 GM/50 ML 1 GM/50 ML BAG IV SCH (11:03)
--- NOTE | 2018-08-04 11:57 | Progress Note ---
Assessment and Plan Assessment and plan: Ms. Ivy is 58 yo woman with a history of hypertension, CVA with ICH June 2017 causing seizure disorder/cognitive impairment/memory loss and ETOH dependency who presented to [facility] as a direct admission on 08/02/2018 by Orthopedist, Dr. Adonis Forbes. Patient underwent Reduction internal fixation r ight proximal humerus. Patient had a seizure which caused the need to repair the right arm fracture. During the postop period, patient developed tachycardia and Hospitalist were consulted. Patient is poor historian. History mainly from daughter, Ele. -Sinus Tachycardia==>UTI with sepsis, urine ctx pending, change iv rocephin to po Levaquin due to poor iv line access. ECHO canceled by department because she just had [facility] in 06/2018, I was not aware of the cancelation until now, her EF was estimated at 50-55% with diastolic dysfunction and negative bubble study -Atelectasis on pCXR, which recommended 2v cXR which I have ordered: incentive spirometry at bedside, education done -Right arm Fracture s/p fixation: per Ortho with dvt prophylaxis -Vaginal bleeding today, will defer to Ortho regarding dvt prophylaxis, RN will call -History of ICH with chronic encephalopathy -Seizure disorder: treat with keppra, seizure precautions -Hypertension: continue antihypertensives, d/c ivf, remove INT left ankle area and right neck -Alcohol Dependency: start CIWA protocol, neurocheck, fall precautions, treat with thiamine -Anemia: continue to monitor, repeat in am Disposition: continue inpatient care History Interval history: Patient seen and examined. Still with fevers. IV rocephin not given today yet because the left ankle iv line is not working. Patient does have UTI, wbc increasing, iv rocephin started yesterday but iv line may not have been working properly. RN has called for peripheral IV line placement help. No IV team over the weekend. Hospitalist Physical - Physical exam Narrative exam: Gen: WDWN, NAD, Awake, Alert, Orientated x 1 HEENT: NCAT, EOMI, PERRL, OP Clear Neck: supple, no adenopathy, no thyromegaly, no JVD, right EJ CVS/Heart: RRR, normal S1S2, pulses present bilaterally Chest/Lungs: CTA B, Symmetrical chest expansion, good air entry bilaterally GI/Abdomen: soft, NTND, good bowel sounds, no guarding or rebound /Bladder: no suprapubic tenderness, no CVA or paraspinal tenderness Extermity/Skin: no c/c/e, no obvious rash, left ankle INT line MSK: lrom right arm Neuro: CN 2-12 grossly intact, no new focal deficits Psych: calm - Constitutional Vitals: Temp Pulse Resp BP Pulse Ox 100.0 F H 124 H 20 118/76 96 08/04/18 10:59 08/04/18 10:59 08/04/18 10:59 08/04/18 10:59 08/04/18 10:59 Results - Labs CBC & Chem 7: 08/04/18 04:35 08/04/18 04:35 Labs: Laboratory Last Values WBC 12.1 K/mm3 (4.5-11.0) H 08/04/18 04:35 RBC 2.96 M/mm3 (3.65-5.03) L 08/04/18 04:35 Hgb 9.0 gm/dl (10.1-14.3) L 08/04/18 04:35 Hct 26.6 % (30.3-42.9) L 08/04/18 04:35 MCV 90 fl (79-97) 08/04/18 04:35 MCH 31 pg (28-32) 08/04/18 04:35 MCHC 34 % (30-34) 08/04/18 04:35 RDW 14.0 % (13.2-15.2) 08/04/18 04:35 Plt Count 444 K/mm3 (140-440) H 08/04/18 04:35 Sodium 134 mmol/L (137-145) L 08/04/18 04:35 Potassium 4.0 mmol/L (3.6-5.0) 08/04/18 04:35 Chloride 99.4 mmol/L (98-107) 08/04/18 04:35 Carbon Dioxide 23 mmol/L (22-30) 08/04/18 04:35 Anion Gap 16 mmol/L 08/04/18 04:35 BUN 9 mg/dL (7-17) 08/04/18 04:35 Creatinine 0.8 mg/dL (0.7-1.2) 08/04/18 04:35 Estimated GFR > 60 ml/min 08/04/18 04:35 BUN/Creatinine Ratio 11 % 08/04/18 04:35 Glucose 107 mg/dL (65-100) H 08/04/18 04:35 Calcium 8.7 mg/dL (8.4-10.2) 08/04/18 04:35 Total Bilirubin 0.30 mg/dL (0.1-1.2) 08/03/18 09:35 AST 27 units/L (5-40) 08/03/18 09:35 ALT 10 units/L (7-56) 08/03/18 09:35 Alkaline Phosphatase 109 units/L (35-129) 08/03/18 09:35 Troponin T < 0.010 ng/mL (0.00-0.029) 08/03/18 09:35 Total Protein 6.4 g/dL (6.3-8.2) 08/03/18 09:35 Albumin 3.2 g/dL (3.9-5) L 08/03/18 09:35 Albumin/Globulin Ratio 1.0 % 08/03/18 09:35 Urine Color Yellow (Yellow) 08/03/18 19:30 Urine Turbidity Cloudy (Clear) 08/03/18 19:30 Urine pH 6.0 (5.0-7.0) 08/03/18 19:30 Ur Specific [place] 1.014 (1.003-1.030) 08/03/18 19:30 Urine Protein <15 mg/dl mg/dL (Negative) 08/03/18 19:30 Urine Glucose (UA) Neg mg/dL (Negative) 08/03/18 19:30 Urine Ketones Neg mg/dL (Negative) 08/03/18 19:30 Urine Blood Neg (Negative) 08/03/18 19:30 Urine Nitrite Neg (Negative) 08/03/18 19:30 Urine Bilirubin Neg (Negative) 08/03/18 19:30 Urine Urobilinogen 2.0 mg/dL (<2.0) 08/03/18 19:30 Ur Leukocyte Esterase Lg (Negative) 08/03/18 19:30 Urine WBC (Auto) > 182.0 /HPF (0.0-6.0) H 08/03/18 19:30 Urine RBC (Auto) 68.0 /HPF (0.0-6.0) 08/03/18 19:30 U Epithel Cells (Auto) < 1.0 /HPF (0-13.0) 08/03/18 19:30 Urine Bacteria (Auto) 1+ /HPF (Negative) 08/03/18 19:30 Urine Yeast (Budding) 1+ /HPF 08/03/18 19:30
[2018-08-04] MEDS: PERCOCET 5/325 PO PRN ×2 (13:42→22:14)
--- NOTE | 2018-08-04 13:42 | XRay Report ---
FINAL REPORT EXAM: XR CHEST ROUTINE 2V HISTORY: pneumonia TECHNIQUE: Frontal and lateral views of the chest. PRIORS: Chest x-ray August 03, 2018. FINDINGS: Cardiac silhouette is within normal limits. There is no effusion. There is no pneumothorax. There is no consolidation. Stable elevated right fiordaliza diaphragm. There are no suspicious osseous lesions. Scoliosis. Right humeral internal fixation hardware. IMPRESSION: No acute cardiopulmonary findings.
[2018-08-04] MEDS: LEVAQUIN PO SCH (13:47)
[2018-08-04] MEDS: MORPHINE IV PRN (19:29)
[2018-08-05] MEDS: PERCOCET 5/325 PO PRN ×2 (05:17→18:45)
[2018-08-05] MEDS: KEPPRA PO SCH ×2 (09:27→21:22)
[2018-08-05] MEDS: LEVAQUIN PO SCH (09:27)
[2018-08-05] MEDS: LOVENOX SUB-Q SCH (09:28)
[2018-08-05] MEDS: ROCEPHIN/NS 1 GM/50 ML 1 GM/50 ML BAG IV SCH (09:36)
[2018-08-05] MEDS: MORPHINE IV PRN (10:44)
--- NOTE | 2018-08-05 15:15 | Progress Note ---
Assessment and Plan Assessment and plan: Ms. Ivy is 58 yo woman with a history of hypertension, CVA with ICH June 2017 causing seizure disorder/cognitive impairment/memory loss and ETOH dependency who presented to [facility] as a direct admission on 08/02/2018 by Orthopedist, Dr. Adonis Forbes. Patient underwent Reduction internal fixation r ight proximal humerus. Patient had a seizure which caused the need to repair the right arm fracture. During the postop period, patient developed tachycardia and Hospitalist were consulted. Patient is poor historian. History mainly from daughter, Ele. -Sinus Tachycardia, resolving==>UTI with sepsis, -Atelectasis on pCXR, which recommended 2v cXR which I have ordered: incentive spirometry at bedside, education done -Right arm Fracture s/p fixation: per Ortho with dvt prophylaxis -Vaginal bleeding today, will defer to Ortho regarding dvt prophylaxis, RN will call -History of ICH with chronic encephalopathy -Seizure disorder: treat with keppra, seizure precautions -Hypertension: continue antihypertensives, d/c ivf, remove INT left ankle area and right neck -Alcohol Dependency: start CIWA protocol, neurocheck, fall precautions, treat with thiamine -Anemia: continue to monitor, repeat in am Disposition: continue inpatient care Need 7 days coarse of Levaquin, will leave script on chart I will sign off Anticipate discharge tomorrow by Dr. Forbes. History Interval history: Patient seen and examined. Still with fevers. IV rocephin not given today yet because the left ankle iv line is not working. Patient does have UTI, wbc increasing, iv rocephin started yesterday but iv line may not have been working properly. RN has called for peripheral IV line placement help. No IV team over the weekend. Hospitalist Physical - Physical exam Narrative exam: Gen: WDWN, NAD, Awake, Alert, Orientated x 1 HEENT: NCAT, EOMI, PERRL, OP Clear Neck: supple, no adenopathy, no thyromegaly, no JVD, right EJ CVS/Heart: RRR, normal S1S2, pulses present bilaterally Chest/Lungs: CTA B, Symmetrical chest expansion, good air entry bilaterally GI/Abdomen: soft, NTND, good bowel sounds, no guarding or rebound /Bladder: no suprapubic tenderness, no CVA or paraspinal tenderness Extermity/Skin: no c/c/e, no obvious rash, left ankle INT line MSK: lrom right arm Neuro: CN 2-12 grossly intact, no new focal deficits Psych: calm - Constitutional Vitals: Temp Pulse Resp BP Pulse Ox 98.3 F 98 H 18 99/74 95 08/05/18 07:27 08/05/18 07:28 08/05/18 11:14 08/05/18 07:27 08/05/18 08:55 Results - Labs CBC & Chem 7: 08/04/18 04:35 08/04/18 04:35 Labs: Laboratory Last Values WBC 12.1 K/mm3 (4.5-11.0) H 08/04/18 04:35 RBC 2.96 M/mm3 (3.65-5.03) L 08/04/18 04:35 Hgb 9.0 gm/dl (10.1-14.3) L 08/04/18 04:35 Hct 26.6 % (30.3-42.9) L 08/04/18 04:35 MCV 90 fl (79-97) 08/04/18 04:35 MCH 31 pg (28-32) 08/04/18 04:35 MCHC 34 % (30-34) 08/04/18 04:35 RDW 14.0 % (13.2-15.2) 08/04/18 04:35 Plt Count 444 K/mm3 (140-440) H 08/04/18 04:35 Sodium 134 mmol/L (137-145) L 08/04/18 04:35 Potassium 4.0 mmol/L (3.6-5.0) 08/04/18 04:35 Chloride 99.4 mmol/L (98-107) 08/04/18 04:35 Carbon Dioxide 23 mmol/L (22-30) 08/04/18 04:35 Anion Gap 16 mmol/L 08/04/18 04:35 BUN 9 mg/dL (7-17) 08/04/18 04:35 Creatinine 0.8 mg/dL (0.7-1.2) 08/04/18 04:35 Estimated GFR > 60 ml/min 08/04/18 04:35 BUN/Creatinine Ratio 11 % 08/04/18 04:35 Glucose 107 mg/dL (65-100) H 08/04/18 04:35 Calcium 8.7 mg/dL (8.4-10.2) 08/04/18 04:35 Total Bilirubin 0.30 mg/dL (0.1-1.2) 08/03/18 09:35 AST 27 units/L (5-40) 08/03/18 09:35 ALT 10 units/L (7-56) 08/03/18 09:35 Alkaline Phosphatase 109 units/L (35-129) 08/03/18 09:35 Troponin T < 0.010 ng/mL (0.00-0.029) 08/03/18 09:35 Total Protein 6.4 g/dL (6.3-8.2) 08/03/18 09:35 Albumin 3.2 g/dL (3.9-5) L 08/03/18 09:35 Albumin/Globulin Ratio 1.0 % 08/03/18 09:35 Urine Color Yellow (Yellow) 08/03/18 19:30 Urine Turbidity Cloudy (Clear) 08/03/18 19:30 Urine pH 6.0 (5.0-7.0) 08/03/18 19:30 Ur Specific [place] 1.014 (1.003-1.030) 08/03/18 19:30 Urine Protein <15 mg/dl mg/dL (Negative) 08/03/18 19:30 Urine Glucose (UA) Neg mg/dL (Negative) 08/03/18 19:30 Urine Ketones Neg mg/dL (Negative) 08/03/18 19:30 Urine Blood Neg (Negative) 08/03/18 19:30 Urine Nitrite Neg (Negative) 08/03/18 19:30 Urine Bilirubin Neg (Negative) 08/03/18 19:30 Urine Urobilinogen 2.0 mg/dL (<2.0) 08/03/18 19:30 Ur Leukocyte Esterase Lg (Negative) 08/03/18 19:30 Urine WBC (Auto) > 182.0 /HPF (0.0-6.0) H 08/03/18 19:30 Urine RBC (Auto) 68.0 /HPF (0.0-6.0) 08/03/18 19:30 U Epithel Cells (Auto) < 1.0 /HPF (0-13.0) 08/03/18 19:30 Urine Bacteria (Auto) 1+ /HPF (Negative) 08/03/18 19:30 Urine Yeast (Budding) 1+ /HPF 08/03/18 19:30
[2018-08-06 07:53] VITALS: BP 124/82
[2018-08-06] MEDS: LEVAQUIN PO SCH ×2 (08:02→10:44)
[2018-08-06] MEDS: KEPPRA PO SCH ×2 (08:03→10:43)
[2018-08-06] MEDS: PERCOCET 5/325 PO PRN (08:08)
[2018-08-06] MEDS: LOVENOX SUB-Q SCH ×2 (08:10→10:45)
--- NOTE | 2018-08-06 12:55 | Progress Note ---
Assessment and Plan Assessment and plan: Ms. 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 Adonis Forbes. Patient underwent Reduction internal fixation r ight proximal humerus. Patient had a seizure which caused the need to repair the right arm fracture. During the postop period, patient developed tachycardia and Hospitalist were consulted. Patient is poor historian. History was mainly from daughter, Ele. -Sinus Tachycardia, resolving==>UTI with sepsis, -Atelectasis on pCXR, which recommended 2v cXR which I have ordered: incentive spirometry at bedside, education done -Right arm Fracture s/p fixation: per Ortho with dvt prophylaxis -Vaginal bleeding today, will defer to Ortho regarding dvt prophylaxis, RN will call -History of ICH with chronic encephalopathy -Seizure disorder: treat with keppra, seizure precautions -Hypertension: continue antihypertensives, d/c ivf, remove INT left ankle area and right neck -Alcohol Dependency: start CIWA protocol, neurocheck, fall precautions, treat with thiamine -Anemia: continue to monitor, repeat in am Disposition: continue inpatient care Need 7 days coarse of Levaquin, left script on chart I will sign off Incentive spirometry stressed Anticipate discharge today History Interval history: Patient seen and examined. Follow up tachycardia, which has resolved. The incentive spirometry helps the most Hospitalist Physical - Physical exam Narrative exam: Gen: WDWN, NAD, Awake, Alert, Orientated x 1 HEENT: NCAT, EOMI, PERRL, OP Clear Neck: supple, no adenopathy, no thyromegaly, no JVD, right EJ CVS/Heart: RRR, normal S1S2, pulses present bilaterally Chest/Lungs: CTA B, Symmetrical chest expansion, good air entry bilaterally GI/Abdomen: soft, NTND, good bowel sounds, no guarding or rebound /Bladder: no suprapubic tenderness, no CVA or paraspinal tenderness Extermity/Skin: no c/c/e, no obvious rash, left ankle INT line MSK: lrom right arm Neuro: CN 2-12 grossly intact, no new focal deficits Psych: calm - Constitutional Vitals: Temp Pulse Resp BP Pulse Ox 97.0 F L 99 H 18 124/82 100 08/06/18 07:02 08/06/18 07:02 08/06/18 07:02 08/06/18 07:02 08/06/18 07:02 Results - Labs CBC & Chem 7: 08/04/18 04:35 08/04/18 04:35 Labs: Laboratory Last Values WBC 12.1 K/mm3 (4.5-11.0) H 08/04/18 04:35 RBC 2.96 M/mm3 (3.65-5.03) L 08/04/18 04:35 Hgb 9.0 gm/dl (10.1-14.3) L 08/04/18 04:35 Hct 26.6 % (30.3-42.9) L 08/04/18 04:35 MCV 90 fl (79-97) 08/04/18 04:35 MCH 31 pg (28-32) 08/04/18 04:35 MCHC 34 % (30-34) 08/04/18 04:35 RDW 14.0 % (13.2-15.2) 08/04/18 04:35 Plt Count 444 K/mm3 (140-440) H 08/04/18 04:35 Sodium 134 mmol/L (137-145) L 08/04/18 04:35 Potassium 4.0 mmol/L (3.6-5.0) 08/04/18 04:35 Chloride 99.4 mmol/L (98-107) 08/04/18 04:35 Carbon Dioxide 23 mmol/L (22-30) 08/04/18 04:35 Anion Gap 16 mmol/L 08/04/18 04:35 BUN 9 mg/dL (7-17) 08/04/18 04:35 Creatinine 0.8 mg/dL (0.7-1.2) 08/04/18 04:35 Estimated GFR > 60 ml/min 08/04/18 04:35 BUN/Creatinine Ratio 11 % 08/04/18 04:35 Glucose 107 mg/dL (65-100) H 08/04/18 04:35 Calcium 8.7 mg/dL (8.4-10.2) 08/04/18 04:35 Total Bilirubin 0.30 mg/dL (0.1-1.2) 08/03/18 09:35 AST 27 units/L (5-40) 08/03/18 09:35 ALT 10 units/L (7-56) 08/03/18 09:35 Alkaline Phosphatase 109 units/L (35-129) 08/03/18 09:35 Troponin T < 0.010 ng/mL (0.00-0.029) 08/03/18 09:35 Total Protein 6.4 g/dL (6.3-8.2) 08/03/18 09:35 Albumin 3.2 g/dL (3.9-5) L 08/03/18 09:35 Albumin/Globulin Ratio 1.0 % 08/03/18 09:35 Urine Color Yellow (Yellow) 08/03/18 19:30 Urine Turbidity Cloudy (Clear) 08/03/18 19:30 Urine pH 6.0 (5.0-7.0) 08/03/18 19:30 Ur Specific [place] 1.014 (1.003-1.030) 08/03/18 19:30 Urine Protein <15 mg/dl mg/dL (Negative) 08/03/18 19:30 Urine Glucose (UA) Neg mg/dL (Negative) 08/03/18 19:30 Urine Ketones Neg mg/dL (Negative) 08/03/18 19:30 Urine Blood Neg (Negative) 08/03/18 19:30 Urine Nitrite Neg (Negative) 08/03/18 19:30 Urine Bilirubin Neg (Negative) 08/03/18 19:30 Urine Urobilinogen 2.0 mg/dL (<2.0) 08/03/18 19:30 Ur Leukocyte Esterase Lg (Negative) 08/03/18 19:30 Urine WBC (Auto) > 182.0 /HPF (0.0-6.0) H 08/03/18 19:30 Urine RBC (Auto) 68.0 /HPF (0.0-6.0) 08/03/18 19:30 U Epithel Cells (Auto) < 1.0 /HPF (0-13.0) 08/03/18 19:30 Urine Bacteria (Auto) 1+ /HPF (Negative) 08/03/18 19:30 Urine Yeast (Budding) 1+ /HPF 08/03/18 19:30
--- NOTE | 2018-08-06 16:13 | Discharge Summary ---
Providers - Providers Date of Admission: 08/02/18 15:46 Date of discharge: 08/06/18 Attending physician: MARIA DE JESUS REBOLLEDO MD 08/02/18 16:07 Physical Therapy Evaluation and Treat [CONS] Routine Comment: pendulum exercises right shoulder Reason For Exam: postop evaluation Weight bearing status?: Full wt bearing Assistive devices?: No 08/03/18 08:49 Consult to Physician [CONS] Routine Comment: Consulting Provider: JUICE HARRIS Physician Instructions: Reason For Exam: medical care for tachycardia in post op pt Primary care physician: [employer] Hospitalization Condition: Stable Procedures: Open reduction internal fixation right proximal humerus Hospital course: 58-year-old female who sustained a displaced proximal right humerus fracture patient was admitted to the hospital and was taken to the operating room where open reduction internal fixation was performed on the right proximal humerus fracture postoperatively patient was seen and evaluated by physical therapy where she was given instructions on range of motion and strengthening exercises to the right upper extremity. Postoperative course was unremarkable patient eventually was discharged home with follow-up appointment in the office Disposition: DC-01 TO HOME OR SELFCARE Core Measure Documentation - Palliative Care Palliative Care/ Comfort Measures: Not Applicable - Core Measures Any of the following diagnoses?: none - VTE Discharge Requirements Deep Vein Thrombosis/Pulmonary Embolism Present on Admission: No Has pt received <5 days of overlap therapy or INR<2.0: Yes Anticoagulant overlap therapy prescribed at discharge: Yes Contraindication No Overlap Therapy order at DC: Medical Contraindication - Acute [place] Discharge Requirements Aspirin at discharge: No Reason for no aspirin on DC: Medical contraindication - Heart Failure Discharge Requirements HARJINDER/ARB for LVSD if EF <40%: No Reason for no HARJINDER/ARB: Medical contraindication - Stroke Discharge Requirements Statin for LDL = or >70 mg/dl on DC: No Exam - Constitutional Vitals: Temp Pulse Resp BP Pulse Ox 97.0 F L 99 H 18 124/82 100 08/06/18 07:02 08/06/18 07:02 08/06/18 07:02 08/06/18 07:02 08/06/18 07:02 Plan Follow up with: PRIMARY CAREMD [Primary Care Provider] - 7 Days Prescriptions: levoFLOXacin [Levaquin TAB] 750 mg PO Q24HR #4 tablet oxyCODONE [roxiCODONE] 5 mg PO Q6HR PRN #30 tablet PRN Reason: Pain
== END 2018-08-06 16:50 | disposition home or self-care (01) | DRG 854 ==
LOC: OR 08:57 → 3B-SURG 15:46 → OBSVTOIN 08-06 13:30
PROVIDERS: ADMIT Orthopaedic Surgery; ATTEND Orthopaedic Surgery
PROC: 0PSF04Z Reposition Right Humeral Shaft with Internal Fixation Device, Open Approach (ICD-10-PCS; principal; 2018-08-06)
DX: A41.9 Sepsis, unspecified organism (principal); S42.291A Other displaced fracture of upper end of right humerus, initial encounter for closed fracture; N39.0 Urinary tract infection, site not specified; J98.11 Atelectasis; Y92.89 Other specified places as the place of occurrence of the external cause; I10 Essential (primary) hypertension; D64.9 Anemia, unspecified; G40.909 Epilepsy, unspecified, not intractable, without status epilepticus; F10.20 Alcohol dependence, uncomplicated
CPT/HCPCS: 36415; 71045; 71046; 80048; 80053; 81001; 84484; 85027; 87040; 87086; 87116; 93005; 93010; 96365; 96366; 96372; 96375; 96376; G0378; C1713; G8978-GP; G8979-GP; J0690; J0696; J1100; J1170; J1650; J1885; J2060; J2270; J2405; J2704; J7120